=== PATIENT | male | born 1990 | race Caucasian/White ===

== ENCOUNTER 2017-04-02 21:05 | Emergency (ER) | payer SELFPAY ==
[~2017-04-02] VITALS: Ht 177.8 cm; Wt 79.6 kg
[2017-04-02 21:24] VITALS: BP 126/59; PULSE 86; RESP 18; TEMP 97.9; O2SAT 97
[2017-04-02] MEDS ORDERED: PROPARACAINE HCL 0.5% OPHT SOLN 15 ML BTL RIGHT EYE ONE (22:45)
--- NOTE | 2017-04-02 22:47 | PD ---
HPI Chief Complaint: Eye Problems/Injury Time Seen by Provider: 22:27 Travel History International Travel<30 days: No Contact w/Intl Traveler<30days: No Traveled to known affect area: No History of Present Illness HPI The patient is a 26-year-old male that apparently last night was working on his car and got something in his right eye. He apparently went to [facility] and would not cooperate there so he went to [facility]. He would not cooperate and hold still so he came to this hospital. The patient states that he needs something strong for anxiety. He states that his last drink of alcohol was last night and consisted of tequila. [facility] Past Medical History Medical History: Denies Significant Hx Tetanus Vaccination: < 5 Years Influenza Vaccination: No Past Surgical History Surgical History: No Previous Surgery Social History Alcohol Use: Yes (WEEKLY) Tobacco Use: No Substance Use: No Allergies-Medications (Allergen,Severity, Reaction): Coded Allergies: No Known Allergies (Unverified , 04/02/17) Reported Meds & Prescriptions Reported Meds & Active Scripts Active No Active Prescriptions or Reported Medications Review of Systems Except as stated in HPI: all other systems reviewed are Neg Physical Exam Narrative GENERAL: Well-nourished, well-developed patient who smells strongly of what appears to be alcohol. The patient is uncooperative and when I ask him about the alcohol he called me a "judgmental prick". He would not cooperate for the exam. SKIN: Focused skin assessment warm/dry. HEAD: Normocephalic. EYES: No scleral icterus. No injection or drainage. There is a corneal foreign body at 3:00 in the right eye. The patient would not cooperate for an exam. NECK: Supple, trachea midline. No JVD or lymphadenopathy. CARDIOVASCULAR: Regular rate and rhythm without murmurs, gallops, or rubs. RESPIRATORY: Breath sounds equal bilaterally. No accessory muscle use. GASTROINTESTINAL: Abdomen soft, non-tender, nondistended. MUSCULOSKELETAL: No cyanosis, or edema. BACK: Nontender without obvious deformity. No CVA tenderness. Data Data Last Documented VS Vital Signs Date Time Temp Pulse Resp B/P (MAP) Pulse Ox O2 Delivery O2 Flow Rate FiO2 04/02/17 21:24 97.9 86 18 126/59 (81) 97 Orders Orders Proparacaine 0.5% Opth Soln (Alcaine 0.5 (04/02/17 22:45) [facility] Medical Decision Making Medical Screen Exam Complete: Yes Emergency Medical Condition: Yes Medical Record Reviewed: Yes Differential Diagnosis Foreign body right eye, corneal abrasion right eye, Narrative Course The patient was cursing and walked out before I could treat him. This apparently is his third hospital for this foreign body. He was told that we could easily remove his foreign body if he would cooperate. The seem to aggravate him even more and started cursing again. There is no way that I can do an adequate eye exam on this patient under these conditions. The patient walked out Diagnosis Primary Impression: Foreign body of right cornea Additional Instructions: We will be glad to remove ear foreign body if he will just cooperate. I cannot remove the foreign body without complete cooperation. Scripts No Active Prescriptions or Reported Meds Disposition: 07 AGAINST MEDICAL ADVICE Condition: Venkata Berger MD Apr 02, 2017 22:47
== END 2017-04-02 22:55 | disposition left against medical advice (07) ==
LOC: PHED 21:05 → PHEFT 22:55
DX: T15.01XA Foreign body in cornea, right eye, initial encounter (principal)
CPT/HCPCS: 99281